=== PATIENT | female | born 1990 | race Two or more races ===

== ENCOUNTER 2018-05-09 15:31 | Emergency (ER) | payer OTHER ==
[~2018-05-09] VITALS: Ht 152.4 cm; Wt 65.3 kg
== END 2018-05-09 18:02 | disposition home or self-care (01) ==
LOC: ER 15:31
DX: R00.2 Palpitations (principal); F06.4 Anxiety disorder due to known physiological condition

== ENCOUNTER → 2018-10-08 | Emergency (ER) | payer OTHER ==
[~2018-10-08] VITALS: Ht 152.4 cm; Wt 68.0 kg
== END | disposition home or self-care (01) ==
LOC: ER 18:54
DX: J06.9 Acute upper respiratory infection, unspecified (principal); J32.8 Other chronic sinusitis; B34.9 Viral infection, unspecified